=== PATIENT | male | born 1985 | race Caucasian/White ===

== ENCOUNTER 2017-11-23 11:23 | Day surgery (SDC) | payer OTHER ==
[~2017-11-23] VITALS: Ht 177.8 cm; Wt 78.4 kg
[~2017-11-23 11:23] MED LIST: CEFOTETAN 2 GM ONE; DEXAMETHASONE 4 MG/ML, 1ML ONE; ONDANSETRON 2MG/ML, 2ML ONE; PROPOFOL 10 MG/ML, 20ML ONE; ROCURONIUM 10 MG/ML,10ML ONE; SUCCINYLCHOLINE 20 MG/ML, 10ML ONE
[2017-11-23] MEDS ORDERED: SODIUM CHLORIDE 0.9% 1,000 ML IV ONE ×2 (12:01→13:29)
[2017-11-23] MEDS ORDERED: ONDANSETRON 2MG/ML, 2ML ONE (12:16)
[2017-11-23] MEDS ORDERED: HYDROmorphone 2 MG/ML, 1ML ONE (12:16)
[2017-11-23 12:24] LABS: BASOPHILS # (AUTO) 0.02 x10^3/uL (0-0.1); BASOPHILS % (AUTO) 0 % (0-1); EOSINOPHILS # (AUTO) 0.02 x10^3/uL (0-0.4); EOSINOPHILS % (AUTO) 0 % (1-7); LYMPHOCYTES # (AUTO) 0.99 x10^3/uL (1-3.4); LYMPHOCYTES % (AUTO) 9 % (22-44); MD NO; MEAN CORPUSCULAR HEMOGLOBIN 36.8 pg (27.5-34.5); MEAN CORPUSCULAR VOLUME 104.9 fL (81-97); MEAN PLATELET VOLUME 9.9 fL (7.4-10.4); MONOCYTES # (AUTO) 0.58 x10^3/uL (0.2-0.8); MONOCYTES % (AUTO) 5 % (2-9); NEUTROPHILS # (AUTO) 9.52 x10^3/uL (1.8-6.8); NEUTROPHILS % (AUTO) 86 % (42-75); PLATELET COUNT 108 x10^3/uL (130-400); RED BLOOD COUNT 4.87 x10^6/uL (4.38-5.82); RED CELL DISTRIBUTION WIDTH 13.2 % (9.4-14.8)
[2017-11-23] MEDS ORDERED: SODIUM CHLORIDE FLUSH 10ML SYR IVF ONE (12:30)
[2017-11-23] MEDS ORDERED: SODIUM CHLORIDE 0.9% 1,000ML IVBOLUS ONE (12:30)
[2017-11-23] MEDS ORDERED: ONDANSETRON 2MG/ML, 2ML IVPush ONE (12:30)
[2017-11-23] MEDS ORDERED: HYDROmorphone 1 MG/ML, 1ML IVPush PRN ×2 (12:30→13:30)
[2017-11-23 12:36] LABS: ALBUMIN 3.3 g/dL (3.4-5.0); ANION GAP 11 mmol/L (5-15); CALCIUM 9.6 mg/dL (8.5-10.1); CHLORIDE 98 mmol/L (98-107); CREATININE 0.82 mg/dL (0.7-1.3)
[2017-11-23 12:45] LABS: ALANINE AMINOTRANSFERASE 87 U/L (12-78); ALKALINE PHOSPHATASE 55 U/L (45-117); BILIRUBIN,TOTAL 1.5 mg/dL (0.2-1.0); TOTAL PROTEIN 7.4 g/dL (6.4-8.2)
[2017-11-23 13:23] LABS: MICROSCOPIC INDICATED
[2017-11-23 13:24] LABS: CULTURE INDICATED? YES
[2017-11-23] MEDS ORDERED: SODIUM CHLORIDE FLUSH 10ML SYR IVF PRN (13:30)
[2017-11-23] MEDS ORDERED: CEFOTETAN PMX 1GM/50ML 50 ML IV ONE (13:30)
[2017-11-23] MEDS ORDERED: ONDANSETRON 2MG/ML, 2ML IVPush PRN ×2 (13:30→14:30)
[2017-11-23] MEDS ORDERED: MIDAZOLAM 1 MG/ML, 2ML ONE (13:48)
[2017-11-23] MEDS ORDERED: FENTANYL PF 250 MCG/5ML ONE (13:49)
[2017-11-23] MEDS ORDERED: LIDOCAINE 4%, 4 ML SYR/CANN TP ONE (13:52)
[2017-11-23] MEDS ORDERED: CEFOTETAN PMX 1GM/50ML 50 ML ONE (13:54)
[2017-11-23] MEDS ORDERED: BUPIVACAINE/PF 0.25% ONE (13:58)
[2017-11-23] MEDS ORDERED: EPINEPHRINE 1 MG/ML, 1ML ONE (13:58)
[2017-11-23 14:01] VITALS: BP 120/90
[2017-11-23] MEDS ORDERED: HYDROcodone/APAP 7.5-325MG/15ML UDC PO PRN (14:30)
[2017-11-23] MEDS ORDERED: OXYcodone 5 MG/5 ML ORAL.SOL UDC PO PRN (14:30)
[2017-11-23] MEDS ORDERED: PROMETHAZINE 25 MG/ML, 1ML IV PRN (14:30)
[2017-11-23] MEDS ORDERED: FENTANYL PF 100 MCG/2ML IV PRN (14:30)
[2017-11-23] MEDS ORDERED: ACETAMINOPHEN 325 MG TABLET PO PRN (14:30)
[2017-11-23] MEDS ORDERED: PROMETHAZINE 12.5 MG SUPP PR PRN (14:30)
[2017-11-23] MEDS ORDERED: HYDROmorphone 1 MG/ML, 1ML IV PRN (14:30)
[2017-11-23] MEDS ORDERED: FENTANYL PF 100 MCG/2ML ONE (15:37)
[2017-11-23] MEDS ORDERED: OXYcodone 5 MG/5 ML ORAL.SOL UDC ONE (15:37)
[2017-11-23] MEDS ORDERED: ACETAMINOPHEN 650 MG/20.3 ML UDC ONE (15:37)
[2017-11-23] MEDS: LABETALOL 5MG/ML, 20ML IV PRN ×2 (16:04→16:14)
[2017-11-23] MEDS ORDERED: LABETALOL 5MG/ML, 20ML ONE (16:13)
== END 2017-11-23 17:00 | disposition home or self-care (01) ==
LOC: ED 13:28 → UNDOADMIN 13:29 → EDIP 13:29 → SDC 14:30 → UNDODISIN 17:00
PROVIDERS: ATTEND Surgery
DX: K80.00 Calculus of gallbladder with acute cholecystitis without obstruction (principal); F17.210 Nicotine dependence, cigarettes, uncomplicated; Z72.89 Other problems related to lifestyle
CPT/HCPCS: 36415; 47562; 76700; 80053; 81001; 83690; 85025; 87086; 88304; C1760; J0171; J0330; J1100; J1170; J2250; J2405; J2704; J3010; J3490; J7030; S0074

== ENCOUNTER 2017-11-29 11:26 | Emergency (ER) | payer OTHER ==
[~2017-11-29] VITALS: Ht 177.8 cm; Wt 78.4 kg
[2017-11-29] MEDS ORDERED: HYDR-3240 PO (12:28)
[2017-11-29 12:54] LABS: BASOPHILS # (AUTO) 0.05 x10^3/uL (0-0.1); BASOPHILS % (AUTO) 1 % (0-1); EOSINOPHILS # (AUTO) 0.05 x10^3/uL (0-0.4); EOSINOPHILS % (AUTO) 1 % (1-7); LYMPHOCYTES # (AUTO) 2.06 x10^3/uL (1-3.4); LYMPHOCYTES % (AUTO) 24 % (22-44); MD NO; MEAN CORPUSCULAR HEMOGLOBIN 36.6 pg (27.5-34.5); MEAN CORPUSCULAR HGB CONC 34.6 g/dL (33.2-36.2); MEAN CORPUSCULAR VOLUME 105.8 fL (81-97); MEAN PLATELET VOLUME 8.9 fL (7.4-10.4); MONOCYTES # (AUTO) 0.81 x10^3/uL (0.2-0.8); MONOCYTES % (AUTO) 9 % (2-9); NEUTROPHILS # (AUTO) 5.76 x10^3/uL (1.8-6.8); NEUTROPHILS % (AUTO) 66 % (42-75); PLATELET COUNT 273 x10^3/uL (130-400); RED BLOOD COUNT 4.22 x10^6/uL (4.38-5.82); RED CELL DISTRIBUTION WIDTH 13.1 % (9.4-14.8)
[2017-11-29] MEDS ORDERED: KETOROLAC 30 MG/1 ML ONE (12:55)
[2017-11-29 13:00] LABS: ALBUMIN 2.9 g/dL (3.4-5.0); ANION GAP 9 mmol/L (5-15); CALCIUM 8.6 mg/dL (8.5-10.1); CHLORIDE 103 mmol/L (98-107)
[2017-11-29] MEDS ORDERED: SODIUM CHLORIDE 0.9% 1,000ML IVBOLUS ONE (13:00)
[2017-11-29] MEDS ORDERED: KETOROLAC 30 MG/1 ML IVPush ONE (13:00)
[2017-11-29] MEDS ORDERED: ONDANSETRON 2MG/ML, 2ML IVPush ONE (13:00)
[2017-11-29] MEDS ORDERED: SODIUM CHLORIDE 0.9% 1,000 ML IV ONE (13:00)
[2017-11-29 13:03] LABS: ALANINE AMINOTRANSFERASE 62 U/L (12-78); ALKALINE PHOSPHATASE 90 U/L (45-117); BILIRUBIN,TOTAL 0.8 mg/dL (0.2-1.0); CREATININE 0.63 mg/dL (0.7-1.3); TOTAL PROTEIN 6.7 g/dL (6.4-8.2)
[2017-11-29] MEDS ORDERED: SODIUM CHLORIDE FLUSH 10ML SYR IVF ONE (13:30)
[2017-11-29 15:09] VITALS: BP 130/82
[2017-11-29 15:37] LABS: CULTURE INDICATED? NO; MICROSCOPIC NOT IND
== END 2017-11-29 15:11 | disposition home or self-care (01) ==
LOC: ED 13:01
DX: R10.13 Epigastric pain (principal); Z90.49 Acquired absence of other specified parts of digestive tract
CPT/HCPCS: 36415; 74022; 80053; 81003; 83690; 85025; 93005; 96361; 96374; 99285; J1885; J7030